=== PATIENT | female | born 1960 | race Two or more races ===

== ENCOUNTER 2025-01-22 14:08 | Emergency (ER) | payer BC, MEDICAID ==
[~2025-01-22] VITALS: Ht 165.1 cm; Wt 53.1 kg
[2025-01-22] MEDS ORDERED: IBUP-1490 PO (15:19)
[2025-01-22 17:06] VITALS: BP 149/81; TEMP 98.5; O2SAT 100
== END 2025-01-22 17:06 | disposition home or self-care (01) ==
LOC: ER 14:46
DX: S52.125A Nondisplaced fracture of head of left radius, initial encounter for closed fracture (principal); Z60.2 Problems related to living alone; W01.0XXA Fall on same level from slipping, tripping and stumbling without subsequent striking against object, initial encounter; Y93.01 Activity, walking, marching and hiking; Y92.89 Other specified places as the place of occurrence of the external cause; Y99.8 Other external cause status
CPT/HCPCS: 73110; 73130-TC